=== PATIENT | female | born 1960 | race Two or more races ===

== ENCOUNTER 2018-09-20 09:17 | Outpatient (CLI) | payer OTHER ==
[2018-09-22] MEDS ORDERED: SEROQUE PO (09:39)
[2018-09-22] MEDS ORDERED: XANAX2 MG PO (09:40)
[2018-09-22] MEDS ORDERED: ULTRACET PO (09:40)
[2018-09-22] MEDS ORDERED: HORIZANT300 MG PO (09:41)
[2018-09-22] MEDS ORDERED: EFFEXOR XR150 MG PO (09:41)
== END 2018-09-20 09:21 | disposition home or self-care (01) ==
LOC: EDBD 09:17 → LAB 09:17
DX: D68.8 Other specified coagulation defects (principal); Z01.818 Encounter for other preprocedural examination

== ENCOUNTER 2018-09-22 10:23 | Day surgery (SDC) | payer OTHER ==
[~2018-09-22 10:23] MED LIST: EFFEXOR XR150 MG PO; HORIZANT300 MG PO; SEROQUE PO; ULTRACET PO; XANAX2 MG PO
[2018-09-22] MEDS ORDERED: OXYC1TAB9 PO (18:18)
[2018-09-22] MEDS ORDERED: DUI500 PO (18:18)
== END 2018-09-22 21:10 | disposition home or self-care (01) ==
LOC: CIR.AMB 10:23
DX: S42.032A Displaced fracture of lateral end of left clavicle, initial encounter for closed fracture (principal)